=== PATIENT | male | born 1955 | race Caucasian/White ===

== ENCOUNTER 2017-02-08 12:37 | Emergency (ER) | payer OTHER, MEDICARE ==
[~2017-02-08] VITALS: Ht 177.8 cm; Wt 91.0 kg
[~2017-02-08 12:37] MED LIST: ALPR0.5T6 PO; ASPI-496 PO; FLONASE; HYDR-3307 PO; LIDO700A30 TD; LISI5TAB7 PO; METF500T4 PO; OXYC20TA42 PO; SIMV20TA3 PO
[2017-02-08 14:22] LABS: BLOOD UREA NITROGEN 13 mg/dL (7-18)
[2017-02-08 14:25] LABS: ASPARTATE AMINO TRANSFERASE 21 U/L (15-37)
[2017-02-08 15:00] VITALS: BP 197/84
== END 2017-02-08 16:11 | disposition home or self-care (01) ==
LOC: ED 15:55
DX: R10.12 Left upper quadrant pain (principal); R10.32 Left lower quadrant pain; I10 Essential (primary) hypertension; E11.9 Type 2 diabetes mellitus without complications; N40.0 Benign prostatic hyperplasia without lower urinary tract symptoms
CPT/HCPCS: 36415; 74176; 80053; 81001; 83690; 85025; 87086; 99285

== ENCOUNTER 2017-02-17 16:57 | Emergency (ER) | payer OTHER, MEDICARE ==
[~2017-02-17] VITALS: Ht 177.8 cm; Wt 90.0 kg
[2017-02-17] MEDS ORDERED: METO50TA82 PO (17:10)
[2017-02-17] MEDS ORDERED: HYDROmorphone 1 MG/ML, 1ML IVPush ONE (18:00)
[2017-02-17] MEDS ORDERED: ONDANSETRON 2MG/ML, 2ML IVPush ONE (18:00)
[2017-02-17] MEDS ORDERED: SODIUM CHLORIDE 0.9%, 500ML IVBOLUS ONE (18:00)
[2017-02-17] MEDS ORDERED: SODIUM CHLORIDE FLUSH 10ML SYR IVF ONE (18:00)
[2017-02-17 18:06] LABS: BLOOD UREA NITROGEN 14 mg/dL (7-18)
[2017-02-17] MEDS ORDERED: HYDROmorphone 1 MG/ML, 1ML ONE ×2 (18:09→19:37)
[2017-02-17 18:40] LABS: PATH.CAST-FLAG NOT PRESENT; SPERM-FLAG NOT PRESENT; SRC-FLAG NOT PRESENT; XTAL-FLAG NOT PRESENT; YLC-FLAG NOT PRESENT
[2017-02-17] MEDS ORDERED: HYDROmorphone 1 MG/ML, 1ML IV ONE (19:30)
[2017-02-17 19:42] VITALS: BP 130/76
== END 2017-02-17 20:04 | disposition home or self-care (01) ==
LOC: ED 17:54
DX: R10.32 Left lower quadrant pain (principal); G89.29 Other chronic pain; E11.9 Type 2 diabetes mellitus without complications; I10 Essential (primary) hypertension; Z87.891 Personal history of nicotine dependence; Z90.49 Acquired absence of other specified parts of digestive tract
CPT/HCPCS: 36415; 80048; 81001; 82040; 85025; 87086; 96361; 96374; 96376; 99285; J1170; J7040

== ENCOUNTER 2017-09-03 08:58 | Observation (INO) | payer OTHER, MEDICARE ==
[~2017-09-03] VITALS: Ht 177.8 cm; Wt 92.6 kg
[~2017-09-03 08:58] MED LIST changes: -FLONASE; +FLONASE NS; +METO50TA82 PO
[2017-09-03] MEDS ORDERED: MORPHINE SULFATE 4 MG/ML, 1ML IVPush PRN (09:30)
[2017-09-03] MEDS ORDERED: ONDANSETRON 2MG/ML, 2ML IVPush ONE (09:30)
[2017-09-03] MEDS ORDERED: SODIUM CHLORIDE FLUSH 10ML SYR IVF ONE (09:30)
[2017-09-03] MEDS ORDERED: NITROGLYCERIN SINGLE TAB 0.4 MG SL PRN (09:30)
[2017-09-03] MEDS ORDERED: ONDANSETRON 2MG/ML, 2ML ONE (09:31)
[2017-09-03] MEDS ORDERED: NITROGLYCERIN SINGLE TAB 0.4 MG SL ONE (09:31)
[2017-09-03 09:41] LABS: BASOPHILS # (AUTO) 0.02 x10^3/uL (0-0.1); BASOPHILS % (AUTO) 0 % (0-1); EOSINOPHILS # (AUTO) 0.13 x10^3/uL (0-0.4); EOSINOPHILS % (AUTO) 2 % (1-7); LYMPHOCYTES # (AUTO) 1.08 x10^3/uL (1-3.4); LYMPHOCYTES % (AUTO) 18 % (22-44); MD NO; MEAN CORPUSCULAR HEMOGLOBIN 30.7 pg (27.5-34.5); MEAN CORPUSCULAR HGB CONC 34.1 g/dL (33.2-36.2); MEAN PLATELET VOLUME 9.7 fL (7.4-10.4); MONOCYTES # (AUTO) 0.42 x10^3/uL (0.2-0.8); MONOCYTES % (AUTO) 7 % (2-9); NEUTROPHILS # (AUTO) 4.34 x10^3/uL (1.8-6.8); NEUTROPHILS % (AUTO) 73 % (42-75); PLATELET COUNT 201 x10^3/uL (130-400); RED BLOOD COUNT 5.25 x10^6/uL (4.38-5.82); RED CELL DISTRIBUTION WIDTH 13.6 % (9.4-14.8)
[2017-09-03 09:47] LABS: ALANINE AMINOTRANSFERASE 23 U/L (12-78); ALBUMIN 3.8 g/dL (3.4-5.0); ANION GAP 8 mmol/L (5-15); CALCIUM 8.2 mg/dL (8.5-10.1); CHLORIDE 108 mmol/L (98-107); CREATININE 1.08 mg/dL (0.7-1.3)
[2017-09-03 09:51] LABS: ALKALINE PHOSPHATASE 65 U/L (45-117); BILIRUBIN,TOTAL 0.6 mg/dL (0.2-1.0); TOTAL PROTEIN 7.1 g/dL (6.4-8.2); TROPONIN I < 0.015 ng/mL (0.000-0.045)
[2017-09-03] MEDS ORDERED: ENALAPRILAT 1.25 MG/ML, 2ML IVPush PRN (11:30)
[2017-09-03] MEDS ORDERED: ONDANSETRON ODT 4 MG PO PRN (11:30)
[2017-09-03] MEDS ORDERED: ACETAMINOPHEN 325 MG TABLET PO PRN (11:30)
[2017-09-03] MEDS ORDERED: LABETALOL 5MG/ML, 20ML IVPush PRN (11:30)
[2017-09-03] MEDS ORDERED: DOCUSATE 100 MG CAPSULE PO PRN (11:30)
[2017-09-03] MEDS ORDERED: ONDANSETRON 2MG/ML, 2ML IVPush PRN (11:30)
[2017-09-03] MEDS: SODIUM CHLORIDE 0.9% 1,000 ML IV SCH ×2 (11:42→21:09)
[2017-09-03] MEDS: ENOXAPARIN 40 MG/0.4 ML SQ SCH (11:42)
[2017-09-03 11:54] VITALS: BP 123/76
[2017-09-03 11:54] LABS: FREE T4 (FREE THYROXINE) 1.26 ng/dL (0.76-1.46); THYROID STIMULATING HORMONE 2.06 mIU/L (0.358-3.740)
[2017-09-03 14:48] VITALS: BP 111/72
[2017-09-03 14:56] LABS: TROPONIN I < 0.015 ng/mL (0.000-0.045)
[2017-09-03] MEDS ORDERED: POTASSIUM PHOSPHATE 44 MEQ in SODIUM CHLORIDE 0.9% 500 ML IV ONE (15:30)
[2017-09-03] MEDS: INSULIN LISPRO 100 UNITS/ML, PEN SQ-INSULIN SCH ×2 (16:00→20:49)
[2017-09-03] MEDS ORDERED: OxyconTIN ER 10 MG TAB.ER ONE (17:10)
[2017-09-03] MEDS: OxyconTIN ER 20 MG TAB.ER PO PRN (17:13)
[2017-09-03 18:44] VITALS: BP 128/75
[2017-09-03 19:38] VITALS: BP 108/70
[2017-09-03] MEDS ORDERED: METOPROLOL TARTRATE 50 MG TABLET PO SCH (21:00)
[2017-09-03] MEDS ORDERED: SIMVASTATIN 20 MG TABLET PO SCH (21:00)
[2017-09-03 22:10] LABS: TROPONIN I < 0.015 ng/mL (0.000-0.045)
[2017-09-04 04:00] VITALS: BP 125/78
[2017-09-04] MEDS: SODIUM CHLORIDE 0.9% 1,000 ML IV SCH (05:15)
[2017-09-04 05:42] LABS: BASOPHILS # (AUTO) 0.02 x10^3/uL (0-0.1); BASOPHILS % (AUTO) 0 % (0-1); EOSINOPHILS # (AUTO) 0.15 x10^3/uL (0-0.4); EOSINOPHILS % (AUTO) 3 % (1-7); LYMPHOCYTES # (AUTO) 1.83 x10^3/uL (1-3.4); LYMPHOCYTES % (AUTO) 32 % (22-44); MD NO; MEAN CORPUSCULAR HGB CONC 34.3 g/dL (33.2-36.2); MEAN CORPUSCULAR VOLUME 90.2 fL (81-97); MEAN PLATELET VOLUME 9.7 fL (7.4-10.4); MONOCYTES % (AUTO) 9 % (2-9); NEUTROPHILS # (AUTO) 3.29 x10^3/uL (1.8-6.8); NEUTROPHILS % (AUTO) 57 % (42-75); PLATELET COUNT 176 x10^3/uL (130-400); RED BLOOD COUNT 4.78 x10^6/uL (4.38-5.82); RED CELL DISTRIBUTION WIDTH 12.9 % (9.4-14.8)
[2017-09-04 05:44] LABS: ANION GAP 6 mmol/L (5-15); CALCIUM 8.2 mg/dL (8.5-10.1); CHLORIDE 108 mmol/L (98-107); CREATININE 1.11 mg/dL (0.7-1.3)
[2017-09-04 05:48] LABS: CHOL/HDL RATIO 3.8; CHOLESTEROL, TOTAL 139 mg/dL (140-239); HDL CHOL % 27 % (26-37); HDL CHOLESTEROL (DIRECT) 37 mg/dL (40-60); LDL CHOLESTEROL,CALCULATED 68 mg/dL (54-169); LDL/HDL RATIO 1.8 (0.5-3.0); TRIGLYCERIDES 168 mg/dL (50-200); VLDL CHOLESTEROL 34 mg/dL (0-25)
[2017-09-04 07:49] VITALS: BP 125/81
[2017-09-04] MEDS: INSULIN LISPRO 100 UNITS/ML, PEN SQ-INSULIN SCH ×2 (08:04→12:01)
[2017-09-04] MEDS ORDERED: REGADENOSON 0.4 MG/5 ML SYRINGE ONE (08:18)
[2017-09-04] MEDS ORDERED: SENNA/DOCUSATE TABLET PO SCH (09:00)
[2017-09-04] MEDS ORDERED: ASPIRIN 81 MG TABLET EC PO SCH (09:00)
[2017-09-04] MEDS ORDERED: FLUTICASONE NASAL SPRAY 16GM NAS SCH (09:00)
[2017-09-04] MEDS ORDERED: LIDODERM 5% PATCH TD SCH (09:00)
[2017-09-04] MEDS: ENOXAPARIN 40 MG/0.4 ML SQ SCH (11:58)
[2017-09-04] MEDS ORDERED: OxyconTIN ER 10 MG TAB.ER ONE (12:12)
[2017-09-04] MEDS: OxyconTIN ER 20 MG TAB.ER PO PRN (12:14)
[2017-09-04 13:08] VITALS: BP 119/75
[2017-09-05] MEDS ORDERED: FLUTICASONE NASAL SPRAY 16GM NAS SCH (09:00)
== END 2017-09-04 16:23 | disposition home or self-care (01) ==
LOC: ED 10:01 → INTOOBSV 10:17 → EDIP 10:17 → 5SO 11:31
PROVIDERS: ADMIT Internal Medicine Pulmonary Disease; ATTEND Internal Medicine Pulmonary Disease
DX: I25.10 Atherosclerotic heart disease of native coronary artery without angina pectoris (principal); E11.9 Type 2 diabetes mellitus without complications; E78.5 Hyperlipidemia, unspecified; F11.20 Opioid dependence, uncomplicated; G47.33 Obstructive sleep apnea (adult) (pediatric); M54.9 Dorsalgia, unspecified; G89.29 Other chronic pain; I10 Essential (primary) hypertension; Z79.84 Long term (current) use of oral hypoglycemic drugs; Z87.891 Personal history of nicotine dependence; Z87.442 Personal history of urinary calculi
CPT/HCPCS: 36415; 71045; 78452; 80048; 80053; 80061; 82962; 83036; 83690; 83735; 83880; 84100; 84439; 84443; 84484; 85025; 93005; 93017; 93306; 96361; 96372; 96374; 99285; A9502; C9898; G0378; J1650; J2405; J2785; J7030; J7040

== ENCOUNTER 2019-02-02 20:51 | Inpatient (IN) | payer OTHER, MEDICARE ==
[~2019-02-02] VITALS: Ht 177.8 cm; Wt 88.0 kg
[~2019-02-02 20:51] MED LIST changes: +METF500T17 PO; -METF500T4 PO
--- NOTE | 2019-02-02 21:15 | NUR ---
FIRST CONTACT WITH PT. PT STATES BLOOD PRESSURE SPIKED TO 180/102 AT HOME, IRREGULAR HR X 1 HOURS. STATED CAN FEEL HE IS HAVING PVCs. STATED ALSO STERNAL CHEST PAIN, BLOATING AND UPPER ABD PAIN, HAD CHOLY 3 MONTHS AGO. PT'S AOX4. RESPS EVEN AND UNLABORED. ALL MONITORS IN PLACE. CALL LIGHT WITHIN REACH. EDMD AT BEDSIDE TO EVALUATE.
[2019-02-02] MEDS ORDERED: NITROGLYCERIN SINGLE TAB 0.4 MG SL ONE (21:23)
--- NOTE | 2019-02-02 21:29 | NUR ---
PT MEDICATED PER EMAR. PT TOLERATED WELL.
[2019-02-02] MEDS ORDERED: NITROGLYCERIN SINGLE TAB 0.4 MG SL PRN (21:30)
--- NOTE | 2019-02-02 21:32 | NUR ---
PT IN XRAY NOW.
[2019-02-02 22:12] LABS: BASOPHILS # (AUTO) 0.01 x10^3/uL (0-0.1); BASOPHILS % (AUTO) 0 % (0-1); EOSINOPHILS # (AUTO) 0.16 x10^3/uL (0-0.4); EOSINOPHILS % (AUTO) 3 % (1-7); LYMPHOCYTES # (AUTO) 1.42 x10^3/uL (1-3.4); LYMPHOCYTES % (AUTO) 26 % (22-44); MD NO; MEAN CORPUSCULAR HEMOGLOBIN 31.2 pg (27.5-34.5); MEAN CORPUSCULAR HGB CONC 33.8 g/dL (33.2-36.2); MEAN CORPUSCULAR VOLUME 92.2 fL (81-97); MEAN PLATELET VOLUME 9.6 fL (7.4-10.4); MONOCYTES % (AUTO) 6 % (2-9); NEUTROPHILS # (AUTO) 3.66 x10^3/uL (1.8-6.8); NEUTROPHILS % (AUTO) 66 % (42-75); PLATELET COUNT 166 x10^3/uL (130-400); RED BLOOD COUNT 4.41 x10^6/uL (4.38-5.82); RED CELL DISTRIBUTION WIDTH 12.9 % (9.4-14.8)
[2019-02-02 22:21] LABS: ALANINE AMINOTRANSFERASE 24 U/L (12-78); ALBUMIN 3.3 g/dL (3.4-5.0); ANION GAP 5 mmol/L (5-15); CALCIUM 8.7 mg/dL (8.5-10.1); CHLORIDE 111 mmol/L (98-107); CREATININE 1.08 mg/dL (0.7-1.3)
[2019-02-02 22:26] LABS: ALKALINE PHOSPHATASE 53 U/L (45-117); BILIRUBIN,TOTAL 0.4 mg/dL (0.2-1.0); TOTAL PROTEIN 6.2 g/dL (6.4-8.2); TROPONIN I < 0.015 ng/mL (0.000-0.045)
[2019-02-02] MEDS ORDERED: MELO15TA24 PO (22:58)
--- NOTE | 2019-02-02 23:33 | NUR ---
REPORT GIVEN TO KEMAR UGALDE. ALL QUESTIONS ANSWERED.
[2019-02-02 23:49] VITALS: BP 136/80
[2019-02-03] MEDS ORDERED: ENOXAPARIN 40 MG/0.4 ML SQ SCH
[2019-02-03] MEDS ORDERED: ENALAPRILAT 1.25 MG/ML, 2ML IVPush PRN
[2019-02-03] MEDS ORDERED: SIMVASTATIN 20 MG TABLET PO SCH
[2019-02-03] MEDS ORDERED: ACETAMINOPHEN 325 MG TABLET PO PRN
[2019-02-03] MEDS ORDERED: TEMAZEPAM 15 MG CAPSULE PO PRN
[2019-02-03] MEDS ORDERED: DOCUSATE 100 MG CAPSULE PO PRN
[2019-02-03] MEDS ORDERED: METOPROLOL TARTRATE 50 MG TABLET PO SCH
[2019-02-03] MEDS ORDERED: ONDANSETRON ODT 4 MG PO PRN
[2019-02-03] MEDS ORDERED: NITROGLYCERIN 0.4 MG BOTTLE (25 TABS) SL PRN
[2019-02-03] MEDS: OxyconTIN ER 20 MG TAB.ER PO SCH ×2 (00:54→09:02)
[2019-02-03 04:00] VITALS: BP 135/75
[2019-02-03 05:00] LABS: BASOPHILS # (AUTO) 0.03 x10^3/uL (0-0.1); BASOPHILS % (AUTO) 0 % (0-1); EOSINOPHILS # (AUTO) 0.27 x10^3/uL (0-0.4); EOSINOPHILS % (AUTO) 5 % (1-7); LYMPHOCYTES # (AUTO) 2.11 x10^3/uL (1-3.4); LYMPHOCYTES % (AUTO) 36 % (22-44); MD NO; MEAN CORPUSCULAR HEMOGLOBIN 31.3 pg (27.5-34.5); MEAN PLATELET VOLUME 9.6 fL (7.4-10.4); MONOCYTES # (AUTO) 0.45 x10^3/uL (0.2-0.8); MONOCYTES % (AUTO) 8 % (2-9); NEUTROPHILS # (AUTO) 3.06 x10^3/uL (1.8-6.8); NEUTROPHILS % (AUTO) 52 % (42-75); PLATELET COUNT 162 x10^3/uL (130-400); RED BLOOD COUNT 4.59 x10^6/uL (4.38-5.82); RED CELL DISTRIBUTION WIDTH 12.8 % (9.4-14.8)
[2019-02-03 05:12] LABS: ANION GAP 5 mmol/L (5-15); CALCIUM 8.6 mg/dL (8.5-10.1); CHLORIDE 111 mmol/L (98-107)
[2019-02-03 05:17] LABS: CREATININE 0.94 mg/dL (0.7-1.3); TROPONIN I < 0.015 ng/mL (0.000-0.045)
[2019-02-03 07:09] VITALS: BP 147/81
[2019-02-03] MEDS ORDERED: MELOXICAM 15 MG TABLET PO SCH (09:00)
[2019-02-03] MEDS ORDERED: OxyconTIN ER 20 MG TAB.ER PO SCH (09:00)
[2019-02-03] MEDS ORDERED: ASPIRIN 81 MG TABLET EC PO SCH (09:00)
[2019-02-03 11:00] LABS: TROPONIN I < 0.015 ng/mL (0.000-0.045)
[2019-02-03 12:37] VITALS: BP 136/86
[2019-02-03] MEDS ORDERED: METO25TA35 PO (17:16)
== END 2019-02-03 17:50 | disposition home or self-care (01) | DRG 310 ==
LOC: ED 23:12 → EDIP 23:15 → 5SO 23:50
PROVIDERS: ADMIT Family Medicine; ATTEND Family Medicine
DX: I49.3 Ventricular premature depolarization (principal); E11.42 Type 2 diabetes mellitus with diabetic polyneuropathy; E78.00 Pure hypercholesterolemia, unspecified; E78.5 Hyperlipidemia, unspecified; G47.33 Obstructive sleep apnea (adult) (pediatric); G89.29 Other chronic pain; I10 Essential (primary) hypertension; F41.9 Anxiety disorder, unspecified; M54.9 Dorsalgia, unspecified; I25.10 Atherosclerotic heart disease of native coronary artery without angina pectoris; Z79.891 Long term (current) use of opiate analgesic; Z87.891 Personal history of nicotine dependence; Z91.19 Patient's noncompliance with other medical treatment and regimen; Z90.49 Acquired absence of other specified parts of digestive tract
CPT/HCPCS: 36415; 71045; 80048; 80053; 83690; 83880; 84484; 85025; 93005; G0378; J1650

== ENCOUNTER 2019-08-04 17:55 | Emergency (ER) | payer OTHER, MEDICARE ==
[~2019-08-04] VITALS: Ht 177.8 cm; Wt 91.2 kg
[~2019-08-04 17:55] MED LIST changes: +DICL100G19 TD; -HYDR-3307 PO; +HYDR-36 PO; +MELO15TA24 PO; +METO25TA35 PO
[2019-08-04] MEDS ORDERED: ALBUTEROL/IPRATROPIUM 2.5MG/0.5MG, 3 ML NPPB ONE (19:00)
[2019-08-04] MEDS ORDERED: KETOROLAC 30 MG/1 ML ONE (19:00)
[2019-08-04] MEDS ORDERED: SODIUM CHLORIDE FLUSH 10ML SYR IVF ONE (19:00)
[2019-08-04] MEDS ORDERED: PROMETHAZINE/COD. 10MG/6.25MG/5 ML ORAL SOL PO ONE (19:00)
[2019-08-04] MEDS ORDERED: KETOROLAC 30 MG/1 ML IVPush ONE (19:00)
[2019-08-04] MEDS ORDERED: SODIUM CHLORIDE 0.9% 1,000ML IVBOLUS ONE (19:00)
[2019-08-04] MEDS ORDERED: ALBUTEROL/IPRATROPIUM 2.5MG/0.5MG, 3 ML ONE (19:06)
[2019-08-04 19:59] LABS: BASOPHILS # (AUTO) 0.01 x10^3/uL (0-0.1); BASOPHILS % (AUTO) 0 % (0-1); EOSINOPHILS % (AUTO) 1 % (1-7); LYMPHOCYTES # (AUTO) 1.35 x10^3/uL (1-3.4); LYMPHOCYTES % (AUTO) 14 % (22-44); MD NO; MEAN CORPUSCULAR HEMOGLOBIN 30.9 pg (27.5-34.5); MEAN CORPUSCULAR HGB CONC 34.2 g/dL (33.2-36.2); MEAN CORPUSCULAR VOLUME 90.3 fL (81-97); MEAN PLATELET VOLUME 9.8 fL (7.4-10.4); MONOCYTES # (AUTO) 0.79 x10^3/uL (0.2-0.8); MONOCYTES % (AUTO) 8 % (2-9); NEUTROPHILS # (AUTO) 7.59 x10^3/uL (1.8-6.8); NEUTROPHILS % (AUTO) 77 % (42-75); PLATELET COUNT 192 x10^3/uL (130-400); RED BLOOD COUNT 5.25 x10^6/uL (4.38-5.82); RED CELL DISTRIBUTION WIDTH 12.6 % (9.4-14.8)
[2019-08-04 20:10] LABS: ANION GAP 8 mmol/L (5-15); CALCIUM 9.1 mg/dL (8.5-10.1); CHLORIDE 106 mmol/L (98-107); CREATININE 0.99 mg/dL (0.7-1.3)
[2019-08-04 20:19] VITALS: BP 112/61
== END 2019-08-04 20:35 | disposition home or self-care (01) ==
LOC: ED 18:55
DX: J98.01 Acute bronchospasm (principal); J20.8 Acute bronchitis due to other specified organisms; B34.9 Viral infection, unspecified; I10 Essential (primary) hypertension; E78.00 Pure hypercholesterolemia, unspecified; E11.9 Type 2 diabetes mellitus without complications; Z87.891 Personal history of nicotine dependence
CPT/HCPCS: 36415; 71045; 80048; 85025; 85379; 87081; 87880; 93005; 94640; 96374; 99284; J1885; J7030; J7512; J7620

== ENCOUNTER → 2020-03-12 | Outpatient (CLI) | payer OTHER, MEDICARE ==
[~2020-03-12] MED LIST changes: +HYDR-3246 PO; -HYDR-36 PO; +SIMV20TA19 PO; -SIMV20TA3 PO
== END | disposition home or self-care (01) ==
LOC: CFH 09:54
PROVIDERS: ATTEND Anesthesiology Pain Medicine
DX: M47.22 Other spondylosis with radiculopathy, cervical region (principal); M25.78 Osteophyte, vertebrae
CPT/HCPCS: 72040

== ENCOUNTER → 2020-04-12 | Outpatient (CLI) | payer OTHER, MEDICARE | END | disposition home or self-care (01) | LOC: CFH 12:13 | PROVIDERS: ATTEND Anesthesiology Pain Medicine | DX: M50.122 Cervical disc disorder at C5-C6 level with radiculopathy (principal); M47.23 Other spondylosis with radiculopathy, cervicothoracic region | CPT/HCPCS: 72125 ==

== ENCOUNTER → 2021-03-04 | Outpatient (CLI) | payer OTHER, MEDICARE ==
[~2021-03-04] MED LIST changes: -ALPR0.5T6 PO; +ALPR0.5T93 PO; -HYDR-3246 PO; +HYDR-3248 PO; +REGADENOSON 0.4 MG/5 ML SYRINGE ONE
== END | disposition home or self-care (01) ==
LOC: CFH 07:28
PROVIDERS: ATTEND Physician Assistant Medical
DX: I08.3 Combined rheumatic disorders of mitral, aortic and tricuspid valves (principal); I10 Essential (primary) hypertension; E11.9 Type 2 diabetes mellitus without complications; E78.00 Pure hypercholesterolemia, unspecified; Z87.891 Personal history of nicotine dependence
CPT/HCPCS: 78452; 93017; 93306; 93356; A9502; J2785